=== PATIENT | male | born 1990 | race Caucasian/White ===

== ENCOUNTER 2020-07-12 11:34 | Emergency (ER) | payer OTHER, BC ==
[2020-07-12 11:55] VITALS: BP 139/85; PULSE 78
--- NOTE | 2020-07-12 12:00 | EDM.PDOC ---
ED HPI GENERAL MEDICAL PROBLEM - General Chief Complaint: General Stated Complaint: R EYE TRAUMA Time Seen by Provider: 07/12/20 11:50 Source of Information: Reports: Patient, Old Records ([facility] EMR. No paper hospital chart available.). Denies: Family History Limitations: Reports: No Limitations - History of Present Illness INITIAL COMMENTS - FREE TEXT/NARRATIVE: The patient was brought to the emergency room via transport vehicle from [facility] for evaluation of a Workmen's Compensation injury, which occurred at about 10:55 AM. Patient was testing a power sprayer with a clean safety hose when he forgot to turn off the pressure with the clean safety hose coming back and hitting his right periorbital region 2 times. An eye patch and ice packs were applied prior to arrival with no other medications or treatment to this point. Note that the patient has not injured this eye in the past and does not normally wear glasses or have vision problems with patient now complaining of 3/10 burning right eye pain with blurred vision he has not injured this eye in the past. The patient denies any chest pain/pressure, heart flutter, dizziness, orthostasis, orthopnea, diaphoresis, paresthesias, recent decreased exercise tolerance, or any other anginal-type symptoms. No recent history of abdominal pain, heartburn, nausea, diarrhea, melena, gross hematochezia, or any food intolerance, including fatty foods, etc.. The patient also denies any recent fever, cough, wheezing, dyspnea, etc.. No history of recent headaches, visual changes, diplopia, change in mental status, or other change in neurological status. He denies any fall, neck/back pain, or other complaints or injuries. The patient was wearing safety glasses at time of the above injury. Onset: Today, Sudden Onset Date: 07/12/20 Onset Time: 11:00 Duration: Constant Location: Reports: Face (Right eye). Denies: Head, Neck, Chest, Abdomen, Back, Pelvis, Upper Extremity, Left, Upper Extremity, Right, Lower Extremity, Left, Lower Extremity, Right, Generalized, Radiates to Quality: Reports: Burning Severity: Mild Improves with: Reports: None Worsens with: Reports: None Context: Reports: Trauma (As above). Denies: Sick Contact Associated Symptoms: Reports: No Other Symptoms. 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 [No Known Home Meds] 07/12/20 [History] Past Medical History HEENT History: Reports: None. Denies: Impaired Vision Musculoskeletal History: Reports: Osteoarthritis, Other (See Below) Other Musculoskeletal History: Chronic bilateral knee pain with previous right ACL tear requiring surgery as below. Endocrine/Metabolic History: Reports: Obesity/BMI 30+ - Infectious Disease History Infectious Disease History: Reports: Chicken Pox. Denies: Novel Coronavirus - Past Surgical History HEENT Surgical History: Reports: Oral Surgery, Other (See Below) Other HEENT Surgeries/Procedures: [place] teeth extraction Musculoskeletal Surgical History: Reports: Arthroscopic Knee, Arthroscopic Procedure, Other (See Below) Other Musculoskeletal Surgeries/Procedures:: A total of 2 right arthroscopic knee surgeries including ACL repair. Additional 3 left knee arthroscopic surgeries. Social & Family History - Family History Family Medical History: No Pertinent Family History - Tobacco Use Tobacco Use Status *Q: Current Every Day Tobacco User Tobacco Use Within Last Twelve Months: Snuff/Dip Years of Tobacco use: 14 Packs/Tins Daily: 0.3 Packs/Tins Daily Comment: Started using chewing tobacco at age 16 with average use of 1/4 can/day Used Tobacco, but Quit: No Smoking Cessation Information Provided To Patient: Yes Second Hand Smoke Exposure: Yes Source of Second Hand Smoke Exposure: chews tobacco Second Hand Smoke Education Provided: Yes - Caffeine Use Caffeine Use: Reports: Energy Drinks - Living Situation & Occupation Living situation: Reports: 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 ED EXAM, GENERAL - Physical Exam Exam: See Below Exam Limited By: No Limitations General Appearance: Alert, WD/WN, No Apparent Distress Eye Exam: Right Eye: PERRL (Blown and irregular right pupil), Vision Changes (Blurred vision), Other (Moderate subconjunctival hematoma with additional lateral scleral bulging indicating possible bulbar injury), Bilateral Eye: EOMI, Normal Fundi, Periorbital Changes (Mild right periorbital swelling and ecchymosis with no direct crepitation, deformity, etc.) Ears: Normal External Exam, Normal Canal, Hearing Grossly Normal, Normal TMs Nose: Normal Inspection, Normal Mucosa, No Blood. No: Nasal Tenderness, Nasal Deformity Throat/Mouth: Normal Inspection, Normal Lips, Normal Teeth, Normal Gums, Normal Oropharynx, Normal Voice, No Airway Compromise. No: Dysphagia, Inflammation, Perioral Cyanosis Head: Normocephalic, Facial Swelling (Right periorbital as above), Facial Tenderness (Right periorbital as above). No: Sinus Tenderness Neck: Normal Inspection, Supple, Non-Tender, Full Range of Motion. No: Lymphadenopathy (L), Lymphadenopathy (R), Thyromegaly Respiratory/Chest: No Respiratory Distress, Lungs Clear, Normal Breath Sounds, No Accessory Muscle Use, Chest Non-Tender. No: Pleural Rub, Retractions Cardiovascular: Normal Peripheral Pulses, Regular Rate, Rhythm, No Edema, No Gallop, No JVD, No Murmur, No Rub. No: Gallop/S3, Gallop/S4, Friction Rub Peripheral Pulses: 2+: Radial (L), Radial (R) GI/Abdominal: Normal Bowel Sounds, Soft, Non-Tender, No Organomegaly, No Distention, No Abnormal Bruit, No Mass, Pelvis Stable. No: Guarding (Male) Exam: Deferred Rectal (Males) Exam: Deferred Back Exam: Normal Inspection, Full Range of Motion. No: CVA Tenderness (L), CVA Tenderness (R), Muscle Spasm Extremities: Normal Inspection, Normal Range of Motion, Non-Tender, No Pedal Edema, Normal Capillary Refill. No: Maite's Sign Neurological: Alert, Oriented, CN II-XII Intact, Normal Cognition, Normal Gait, Normal Reflexes, No Motor/Sensory Deficits Psychiatric: Normal Affect Skin Exam: Ecchymosis (Right periorbital), Wound/Incision (Mild superficial right upper eyelid abrasion). No: Diaphoretic Lymphatic: No Adenopathy Course - Vital Signs Last Recorded V/S: Last Vital Signs Temp 36.5 C 07/12/20 11:38 Pulse 78 06/04/21 11:54 Resp 16 07/12/20 11:54 BP 139/85 07/12/20 11:54 Pulse Ox 99 07/12/20 11:54 Vital Signs - 24 hr 07/12/20 07/12/20 11:38 11:54 Temperature [ 36.5 C Temporal] Pulse, 84 78 Peripheral [ Pulse Oximetry] Respiratory 16 16 Rate Blood Pressure 138/89 139/85 [Left Upper Arm ] O2 Sat by Pulse 99 99 Oximetry - Orders/Labs/Meds Orders: Active Orders 24 hr Category Date Time Status Max Facial Sinus wo Cont [CT] Stat Exams 07/12/20 12:00 Taken Obtain Past Medical Record [OM.PC] Routine Oth 07/12/20 11:59 Active Labs: None Meds: None - Radiology Interpretation Free Text/Narrative:: CT of the neck/facial region without contrast does not indicate any evidence of fracture with mild right eyelid swelling and evidence of soft tissue injury. Preliminary verbal report was not received from the radiology department at [facility] in [place] as previously requested. Departure - Departure Time of Disposition: 12:27 Disposition: DC/Tfer to Acute Hospital 02 Condition: Fair Clinical Impression: Tobacco abuse counseling Ocular trauma of right eye Qualifiers: Encounter type: initial encounter Qualified Code(s): S05.91XA - Unspecified injury of right eye and orbit, initial encounter - Discharge Information *PRESCRIPTION DRUG MONITORING PROGRAM REVIEWED*: Not Applicable *COPY OF PRESCRIPTION DRUG MONITORING REPORT IN PATIENT ELENA: Not Applicable Instructions: Steps to Quit Smoking, [id number], Health Risks of Smoking, Smokeless Tobacco Information, Adult Referrals: PCP,None [Primary Care Provider] - Forms: ED Department Discharge, Interfacility Transfer EMTALA Additional Instructions: 1. Have your drive you to the emergency room at [facility] 2. Strict nothing to eat or drink until otherwise directed by your [place] providers 3. Ice packs to the forehead in route are okay with eye patch to remain in place until otherwise directed 4. Stop all tobacco use [facility] as directed/per provided information and consider contacting Quit LIne, etc.. 5. Immediately after this visit verify that your cellular telephone's voicemail has been activated and is empty. Also verify that your home telephone's answering machine is operating properly and has space to receive messages. Note that it is sometimes necessary for us to be able to contact you at a later date to discuss your medical care. 6. Work excuse- See Form. Provide blank Workmen's Compensation forms and [place] forms to your accepting providers in [place] 7. Please remember that we are ALWAYS here for you and want to answer any questions you may have. Feel free to call the hospital any time and we call you back TRENA. Sepsis Event Note (ED) - Evaluation Sepsis Screening Result: No Definite Risk - Focused Exam Vital Signs: Vital Signs Temp Pulse Resp BP Pulse Ox 07/12/20 11:54 78 16 139/85 99 07/12/20 11:38 36.5 C 84 16 138/89 99 - Problem List & Annotations (1) Ocular trauma of right eye SNOMED Code(s): 478721443 Code(s): S05.91XA - UNSPECIFIED INJURY OF RIGHT EYE AND ORBIT, INITIAL ENCOUNTER Status: Acute Priority: High Current Visit: Yes Onset Date: 07/12/20 Annotation/Comment:: Telephone consultation at 11:[address] Delvalle, emergency room physician at [facility] in [place], who does accept the patient for further treatment, evaluation, and probable ophthalmology consultation, with no further treatment recommendations given. Note CT scan of the maxillofacial region as above. [place] work excuse and Workmen's Compensation forms were initially completed with additional blank copies provided to the patient for the accepting providers. Vital signs and clinical exam were stable at transfer with eye dressing/patch applied and ice packs applied to the forehead region. Private automobile transfer by the patient's . Qualifiers: Encounter type: initial encounter Qualified Code(s): S05.91XA - Unspecified injury of right eye and orbit, initial encounter (2) Laceration SNOMED Code(s): 984628443 Code(s): T14.8 - OTHER INJURY OF UNSPECIFIED BODY REGION * DO NOT USE * Status: Acute Priority: Medium Current Visit: Yes Onset Date: 07/12/20 Annotation/Comment:: Superficial abrasion of the right upper eyelid with further treatment by accepting providers as needed. (3) Tobacco abuse counseling SNOMED Code(s): 641207941, 344619672, 872235652 Code(s): Z71.6 - TOBACCO ABUSE COUNSELING Status: Chronic Priority: Medium Current Visit: Yes Annotation/Comment:: The patient was counseled on the use of Nicorette gum for chewing tobacco cessation with tobacco cessation information provided and encouraged. - Problem List Review Problem List Initiated/Reviewed/Updated: Yes - My Orders Last 24 Hours: My Active Orders 07/12/20 11:59 Obtain Past Medical Record [OM.PC] Routine 07/12/20 12:00 Max Facial Sinus wo Cont [CT] Stat - Assessment/Plan Last 24 Hours: My Active Orders 07/12/20 11:59 Obtain Past Medical Record [OM.PC] Routine 07/12/20 12:00 Max Facial Sinus wo Cont [CT] Stat Assessment:: As above. Plan: As above. Extensive precautions were given to the patient and his , who are in agreement with the treatment plan. See Patient Instructions for further treatment and plan. Patient was transferred to the automobile with his driving.
== END 2020-07-12 12:27 ==
LOC: LL.ED 11:34
DX: S05.91XA Unspecified injury of right eye and orbit, initial encounter (principal); E66.9 Obesity, unspecified; Z72.0 Tobacco use; W22.8XXA Striking against or struck by other objects, initial encounter; Y99.0 Civilian activity done for income or pay
CPT/HCPCS: 70486; 99284; 99284-25